=== PATIENT | male | born 1985 | race Caucasian/White ===

== ENCOUNTER 2020-07-10 20:34 | Emergency (ER) | payer OTHER ==
--- NOTE | 2020-07-10 20:38 | EDM.PDOC ---
ED HPI GENERAL MEDICAL PROBLEM - General Chief Complaint: Head Injury Stated Complaint: HEAD INJURY Time Seen by Provider: 07/10/20 20:37 Source of Information: Reports: Patient History Limitations: Reports: No Limitations - History of Present Illness INITIAL COMMENTS - FREE TEXT/NARRATIVE: 34-year-old male presents brought in by police department for aggressive behavior at longterm. Patient was banging his head against a cell door and sustained a hematoma and laceration to his frontal head. No loss of consciousness. No neck pain. No falls. No blood thinner use. No alcohol abuse. No AMS. He has no complaints head Pain Score (Numeric/FACES): 0 - Related Data Allergies Allergy/AdvReac Type Severity Reaction Status Date / Time No Known Allergies Allergy Verified 07/10/20 20:41 Home Meds: Home Meds . [No Known Home Meds] 07/10/20 [History] ED ROS GENERAL - Review of Systems Review Of Systems: Comprehensive ROS is negative, except as noted in HPI. ED EXAM, HEAD INJURY - Physical Exam Exam: See Below Exam Limited By: No Limitations General Appearance: Alert, WD/WN, No Apparent Distress Head: Atraumatic, Other (2-cm hematoma with overlying small linear abrasion no active bleeding ) Nexus Criteria: No: Posterior, Midline Cervical Tenderness, Evidence of Intoxication, Altered Level of Consciousness, Focal Neurological Deficit, Painful Distraction Injuries Eyes: Bilateral Eye: PERRL Throat/Mouth: Normal Voice, No Airway Compromise Neck: Non-Tender Respiratory: No Respiratory Distress, Lungs Clear, Normal Breath Sounds, No Accessory Muscle Use Cardiovascular: Normal Peripheral Pulses, Regular Rate, Rhythm GI/Abdominal Exam: Normal Bowel Sounds Extremities: Normal Inspection Neurologic: Alert Course - Vital Signs Last Recorded V/S: Last Vital Signs Temp 97.4 F 07/10/20 20:41 Pulse 73 07/10/20 20:41 Resp 20 07/10/20 20:41 BP 144/94 H 07/10/20 20:41 Pulse Ox 97 07/10/20 20:41 - Orders/Labs/Meds Meds: Medications Discontinued Medications Generic Name Dose Route Start Last Admin Trade Name Freq PRN Reason Stop Dose Admin Octyl Cyanoacrylate 1 applic 07/10/20 20:45 07/10/20 20:46 Octyl 2-Cyanoacrylate 1 Tube TOP 07/10/20 20:46 1 applic ONETIME ONE Administration Octyl Cyanoacrylate Confirm 07/10/20 20:44 Octyl 2-Cyanoacrylate 1 Tube Administered 07/10/20 20:45 Dose 1 applic .ROUTE .STK-MED ONE - Re-Assessments/Exams Free Text/Narrative Re-Assessment/Exam: 07/10/20 20:49 We will discharge to PD custody Departure - Departure Time of Disposition: 20:49 Disposition: Home, Self-Care 01 Condition: Good Clinical Impression: Head injury Qualifiers: Encounter type: initial encounter Qualified Code(s): S09.90XA - Unspecified injury of head, initial encounter - Discharge Information Instructions: Head Injury, Adult Referrals: PCP,None [Primary Care Provider] - Forms: ED Department Discharge Additional Instructions: The following information is given to patients seen in the emergency department who are being discharged to home. This information is to outline your options for follow-up care. We provide all patients seen in our emergency department with a follow-up referral. The need for follow-up, as well as the timing and circumstances, are variable depending upon the specifics of your emergency department visit. If you don't have a primary care physician on staff, we will provide you with a referral. We always advise you to contact your personal physician following an emergency department visit to inform them of the circumstance of the visit and for follow-up with them and/or the need for any referrals to a consulting specialist. The emergency department will also refer you to a specialist when appropriate. This referral assures that you have the opportunity for follow-up care with a specialist. All of these measure are taken in an effort to provide you with optimal care, which includes your follow-up. Under all circumstances we always encourage you to contact your private physician who remains a resource for coordinating your care. When calling for follow-up care, please make the office aware that this follow-up is from your recent emergency room visit. If for any reason you are refused follow-up, please contact the [facility] Emergency Department at and asked to speak to the emergency department charge nurse. Please follow up with your primary care physician. If you do not have a primary care physician, see below: [facility] [address] [place] [id number] [place], [place] [id number] [facility] [address] [place] [address] Sepsis Event Note (ED) - Focused Exam Vital Signs: Vital Signs Temp Pulse Resp BP Pulse Ox 07/10/20 20:41 97.4 F 73 20 144/94 H 97
[2020-07-10] MEDS ORDERED: Octyl 2-Cyanoacrylate 1 Tube ONE (20:44)
[2020-07-10] MEDS ORDERED: Octyl 2-Cyanoacrylate 1 Tube TOP ONE (20:45)
== END 2020-07-10 20:56 ==
LOC: MW.ED 20:34
DX: S00.93XA Contusion of unspecified part of head, initial encounter (principal); Y92.143 Cell of prison as the place of occurrence of the external cause; W22.8XXA Striking against or struck by other objects, initial encounter
CPT/HCPCS: 99283; A9270

== ENCOUNTER 2021-04-24 08:21 | Emergency (ER) | payer OTHER ==
[2021-04-24] MEDS ORDERED: Albuterol/Ipratropium 3.0-0.5 MG/3 ML Neb Soln NEB PRN (08:32)
[2021-04-24] MEDS ORDERED: Albuterol 8 GM Inhaler INH PRN ×2 (08:38→09:32)
[2021-04-24] MEDS ORDERED: Benzonatate 100 MG Cap PO ONE (08:40)
[2021-04-24] MEDS ORDERED: Sodium Chloride 0.9% 10 ML Syringe FLUSH PRN (08:41)
[2021-04-24] MEDS ORDERED: Sodium Chloride 0.9% 2.5 ML Syringe FLUSH PRN (08:41)
[2021-04-24] MEDS ORDERED: Sodium Chloride 0.9% 20 ML SDV IV PRN (08:41)
--- NOTE | 2021-04-24 08:45 | EDM.PDOC ---
<Ayana Dougherty - Last Filed: 04/24/21 10:35> ED HPI GENERAL MEDICAL PROBLEM - General Chief Complaint: Respiratory Problem Stated Complaint: sob Time Seen by Provider: 04/24/21 08:31 - History of Present Illness INITIAL COMMENTS - FREE TEXT/NARRATIVE: 35-year-old male with a history of hepatitis C presents to the clinic with 5days of fever, chills, cough productive of yellow sputum and fatigue. Patient is not vaccinated for COVID-19 or the flu. Patient smokes half a pack per day for 25 years. Patient was brought in by EMS. He appears to be in mild distress and states difficulty breathing is his main complaint. Patient denies nausea, vomiting, diarrhea, chest pain, palpitations, headaches, syncope or leg pain. Patient is not on any medications. Patient denies any known allergies. coughing pain Pain Score (Numeric/FACES): 5 - Related Data Allergies Allergy/AdvReac Type Severity Reaction Status Date / Time No Known Allergies Allergy Verified 04/24/21 08:31 Home Meds: Home Meds Azithromycin 250 mg PO DAILY #6 tablet 04/24/21 [Rx] predniSONE [Prednisone] 60 mg PO DAILY #21 tablet 04/24/21 [Rx] Past Medical History - Past Health History Medical/Surgical History: Denies Medical/Surgical History - Infectious Disease History Infectious Disease History: Reports: Chicken Pox Social & Family History - Family History Family Medical History: No Pertinent Family History - Caffeine Use Caffeine Use: Reports: None ED ROS GENERAL - Review of Systems Review Of Systems: Comprehensive ROS is negative, except as noted in HPI. ED EXAM, GENERAL - Physical Exam Exam: See Below General Appearance: Alert, Mild Distress Nose: Normal Inspection Throat/Mouth: Normal Inspection, No Airway Compromise Head: Atraumatic, Normocephalic Neck: Normal Inspection, Supple Respiratory/Chest: No Respiratory Distress, No Accessory Muscle Use, Chest Non- Tender, Decreased Breath Sounds Cardiovascular: Normal Peripheral Pulses, Regular Rate, Rhythm Peripheral Pulses: 2+: Dorsalis Pedis (L), Dorsalis Pedis (R) GI/Abdominal: Normal Bowel Sounds, Soft, Non-Tender Back Exam: Normal Inspection Extremities: Normal Inspection Neurological: Alert, Oriented Course - Re-Assessments/Exams Free Text/Narrative Re-Assessment/Exam: 04/24/21 10:24 Chest x-ray unremarkable. Covid negative. Influenza negative. Patient received 1 L normal saline. 1 dose of Solu-Medrol. Patient's lungs are clear. Departure - Departure Disposition: Home, Self-Care 01 Clinical Impression: Lower respiratory infection - Discharge Information *PRESCRIPTION DRUG MONITORING PROGRAM REVIEWED*: Not Applicable *COPY OF PRESCRIPTION DRUG MONITORING REPORT IN PATIENT AYO: Not Applicable Prescriptions: Azithromycin 250 mg PO DAILY #6 tablet predniSONE [Prednisone] 60 mg PO DAILY #21 tablet Referrals: Elio Hutchins, VISUAL MERCHANDISING DIRECTOR [Primary Care Provider] - Forms: ED Department Discharge Additional Instructions: The following information is given to patients seen in the emergency department who are being discharged to home. This information is to outline your options for follow-up care. We provide all patients seen in our emergency department with a follow-up referral. The need for follow-up, as well as the timing and circumstances, are variable depending upon the specifics of your emergency department visit. If you don't have a primary care physician on staff, we will provide you with a referral. We always advise you to contact your personal physician following an emergency department visit to inform them of the circumstance of the visit and for follow-up with them and/or the need for any referrals to a consulting specialist. The emergency department will also refer you to a specialist when appropriate. This referral assures that you have the opportunity for follow-up care with a specialist. All of these measure are taken in an effort to provide you with optimal care, which includes your follow-up. Under all circumstances we always encourage you to contact your private physician who remains a resource for coordinating your care. When calling for follow-up care, please make the office aware that this follow-up is from your recent emergency room visit. If for any reason you are refused follow-up, please contact the [facility] Emergency Department at and asked to speak to the emergency department charge nurse. [facility] [address] [place] [id number] [facility] [address] [place] [id number] Thank you for choosing the [facility] emergency department in [place] for your medical needs today. It was a pleasure caring for you. Today you were seen in the emergency department for lower respiratory infection. Please take azithromycin as directed. Please take prednisone as directed. You have been given an albuterol inhaler. Please take 2 puffs every 2 hours as needed for shortness of breath. Prescriptions sent to [facility]. <Macho Mcleod - Last Filed: 04/24/21 10:36> ED ROS GENERAL - Review of Systems Review Of Systems: Comprehensive ROS is negative, except as noted in HPI. ED EXAM, GENERAL - Physical Exam Exam: See Below Free Text/Narrative:: Physical exam is in the HPI Course - Vital Signs Last Recorded V/S: Last Vital Signs Temp 37.1 C 04/24/21 08:21 Pulse 104 H 04/24/21 08:59 Resp 40 H 04/24/21 08:21 BP 122/73 04/24/21 08:59 Pulse Ox 95 04/24/21 08:59 - Orders/Labs/Meds Orders: Active Orders 24 hr Category Date Time Status RT Post Treatment Assessment [RC] Click to Edit Care 04/24/21 08:39 Active RT Pre-Treatment Assessment [RC] Click to Edit Care 04/24/21 08:39 Active Albuterol [Ventolin HFA] Med 04/24/21 09:32 Active 0 gm INH Q2H PRN Sodium Chloride 0.9% [Normal Saline] Med 04/24/21 08:41 Active 10 ml IV ASDIRECTED PRN Sodium Chloride 0.9% [Normal Saline] 1,000 ml Med 04/24/21 09:56 Active IV .Bolus Sodium Chloride 0.9% [Saline Flush] Med 04/24/21 08:41 Active 10 ml FLUSH ASDIRECTED PRN Sodium Chloride 0.9% [Saline Flush] Med 04/24/21 08:41 Active 2.5 ml FLUSH ASDIRECTED PRN Peripheral IV Insertion Adult [OM.PC] Stat Oth 04/24/21 08:41 Ordered Medication Orders Albuterol (Albuterol 8 Gm Inhaler) 0 gm INH Q2H PRN PRN Reason: Shortness of Breath Sodium Chloride (Normal Saline) 1,000 mls @ 999 mls/hr IV .Bolus ONE Stop: 04/24/21 10:56 Last Admin: 04/24/21 10:20 Dose: 999 mls/hr Documented by: PETRKAT Sodium Chloride (Sodium Chloride 0.9% 10 Ml Syringe) 10 ml FLUSH ASDIRECTED PRN PRN Reason: Keep Vein Open Last Admin: 04/24/21 08:56 Dose: 10 ml Documented by: PETRKAT Sodium Chloride (Sodium Chloride 0.9% 2.5 Ml Syringe) 2.5 ml FLUSH ASDIRECTED PRN PRN Reason: Keep Vein Open Last Admin: 04/24/21 08:56 Dose: 2.5 ml Documented by: PETRKAT Sodium Chloride (Sodium Chloride 0.9% 20 Ml Sdv) 10 ml IV ASDIRECTED PRN PRN Reason: IV Use Labs: Laboratory Tests 04/24/21 04/24/21 04/24/21 Range/Units 08:15 08:25 08:25 WBC 16.07 H (4.0-11.0) K/uL RBC 5.06 (4.50-5.90) M/uL Hgb 15.8 (13.0-17.0) g/dL Hct 44.5 (38.0-50.0) % MCV 87.9 (80.0-98.0) fL MCH 31.2 (27.0-32.0) pg MCHC 35.5 (31.0-37.0) g/dL RDW Std Deviation 44.8 (28.0-62.0) fl RDW Coeff of Bernice 14 (11.0-15.0) % Plt Count 276 (150-400) K/uL MPV 10.00 (7.40-12.00) fL Nucleated RBC % 0.0 /100WBC Nucleated RBCs # 0 K/uL Sodium 139 (136-148) mmol/L Potassium 3.4 L (3.5-5.1) mmol/L Chloride 100 (98-107) mmol/L Carbon Dioxide 18.0 L (21.0-32.0) mmol/L BUN 12 (7.0-18.0) mg/dL Creatinine 1.4 H (0.8-1.3) mg/dL Est Cr Clr Drug Dosing 70.20 mL/min Estimated GFR (MDRD) 57.3 ml/min Glucose 156 H (74-106) mg/dL Calcium 8.9 (8.5-10.1) mg/dL Total Bilirubin 0.4 (0.2-1.0) mg/dL AST 15 (15-37) IU/L ALT 19 (14-63) IU/L Alkaline Phosphatase 91 (46-116) U/L Total Protein 7.8 (6.4-8.2) g/dL Albumin 3.6 (3.4-5.0) g/dL Globulin 4.2 H (2.6-4.0) g/dL Albumin/Globulin Ratio 0.9 (0.9-1.6) Influenza Type A RNA NEGATIVE (NEGATIVE) Influenza Type B RNA NEGATIVE (NEGATIVE) SARS-CoV-2 RNA (ABBEY) NEGATIVE (NEGATIVE) Meds: Medications Generic Name Dose Route Start Last Admin Trade Name Damaris PRN Reason Stop Dose Admin Albuterol 0 gm 04/24/21 09:32 Albuterol 8 Gm Inhaler INH Q2H PRN Shortness of Breath Sodium Chloride 1,000 mls @ 999 mls/hr 04/24/21 09:56 04/24/21 10:20 Normal Saline IV 04/24/21 10:56 999 mls/hr .Bolus ONE Administration Sodium Chloride 10 ml 04/24/21 08:41 04/24/21 08:56 Sodium Chloride 0.9% 10 Ml Syringe FLUSH 10 ml ASDIRECTED PRN Administration Keep Vein Open Sodium Chloride 2.5 ml 04/24/21 08:41 04/24/21 08:56 Sodium Chloride 0.9% 2.5 Ml Syringe FLUSH 2.5 ml ASDIRECTED PRN Administration Keep Vein Open Sodium Chloride 10 ml 04/24/21 08:41 Sodium Chloride 0.9% 20 Ml Sdv IV ASDIRECTED PRN IV Use Discontinued Medications Generic Name Dose Route Start Last Admin Trade Name Frewill PRN Reason Stop Dose Admin Albuterol 8.5 gm 04/24/21 08:55 04/24/21 09:53 Albuterol 8 Gm Inhaler INH 04/24/21 08:56 8.5 gm ONETIME STA Administration Albuterol/Ipratropium 3 ml 04/24/21 08:32 Albuterol/Ipratropium 3.0-0.5 Mg/3 Ml Neb Soln NEB Q2H PRN Shortness of Breath Benzonatate 200 mg 04/24/21 08:40 04/24/21 08:56 Benzonatate 100 Mg Cap PO 04/24/21 08:41 200 mg ONETIME ONE Administration Methylprednisolone Sodium Succinate 125 mg 04/24/21 09:25 04/24/21 09:33 Methylprednisolone Sodium Succinate 125 Mg/2 Ml Sdv IVPUSH 04/24/21 09:26 125 mg ONETIME ONE Administration - Re-Assessments/Exams Free Text/Narrative Re-Assessment/Exam: 04/24/21 08:59 Chart from the resident reviewed. I agree with the history and physical exam. He is got prolonged expiratory phase of respiration with coarse breath sounds throughout at this point and he has responded well to an albuterol treatment in route by the EMS personnel. He is waiting for his inhaler and spacer to be given and started here. He also has not had his chest x-ray yet. The patient feels improved and his oxygen saturation is 97%. Departure - Departure Time of Disposition: 10:36 Sepsis Event Note (ED) - Focused Exam Vital Signs: Vital Signs Temp Pulse Resp BP Pulse Ox 04/24/21 08:59 104 H 122/73 95 04/24/21 08:45 107 H 147/87 H 95 04/24/21 08:30 139/70 97 04/24/21 08:21 37.1 C 118 H 40 H 139/70 99
[2021-04-24] MEDS ORDERED: Albuterol 8 GM Inhaler INH STA (08:55)
[2021-04-24] MEDS ORDERED: methylPREDNISolone Sodium Succinate 125 MG/2 ML SDV IVPUSH ONE (09:25)
[2021-04-24 09:31] LABS: CORONAVIRUS COVID-19 NAA NEGATIVE (NEGATIVE); INFLUENZA A NAA NEGATIVE (NEGATIVE); INFLUENZA B NAA NEGATIVE (NEGATIVE)
[2021-04-24 09:31] LABS: POTASSIUM,K 3.4 mmol/L (3.5-5.1)
--- NOTE | 2021-04-24 09:31 | CR ---
INDICATION: Cough and dyspnea COMPARISON: None TECHNIQUE: Single-view study performed as an AP portable upright image FINDINGS: TUBES AND LINES: None. HEART AND MEDIASTINUM: The heart size is normal. The mediastinal contour appears normal for patient age. LUNGS AND PLEURAL SPACES: The lungs appear normal.The pleural spaces are unremarkable. OSSEOUS STRUCTURES: Age-appropriate appearance. No acute focal finding. IMPRESSION: No evidence of active pulmonary disease. Dictated by Juanito Parikh MD @ 04/24/2021 9:29:45 AM (Electronically Signed)
[2021-04-24] MEDS ORDERED: Sodium Chloride 0.9% 1,000 ML IV ONE (09:56)
== END 2021-04-24 11:20 | disposition home or self-care (01) ==
LOC: MW.ED 08:21
DX: J22 Unspecified acute lower respiratory infection (principal); Z20.822 Contact with and (suspected) exposure to COVID-19
CPT/HCPCS: 0240U; 36415; 71045; 80053; 85027; 96374; 99285; A9270; J2930; J7030

== ENCOUNTER 2021-11-18 14:35 | Emergency (ER) | payer OTHER ==
[2021-11-18] MEDS ORDERED: Bacitracin Oint 1 GM U/D Packet TOP ONE (14:46)
[2021-11-18] MEDS ORDERED: Diphtheria,Pertussis(Acell),Tetanus Vaccine 0.5 ML Syringe IM ONE (14:46)
[2021-11-18] MEDS ORDERED: Lidocaine 1% PF 2 ML SDV INJECT ONE (14:46)
[2021-11-18] MEDS ORDERED: Ibuprofen 400 MG Tab PO ONE (14:53)
[2021-11-18] MEDS ORDERED: Acetaminophen 325 MG Tab PO ONE (14:53)
[2021-11-18] MEDS ORDERED: Lidocaine 1% 5 ML VIAL INJECT ONE (14:53)
[2021-11-18] MEDS ORDERED: Lidocaine/Epineph/Tetracaine 3 ML Syringe TOP ONE (15:52)
== END 2021-11-18 17:36 | disposition home or self-care (01) ==
LOC: MW.ED 14:35
DX: S61.012A Laceration without foreign body of left thumb without damage to nail, initial encounter (principal); F17.210 Nicotine dependence, cigarettes, uncomplicated; Z23 Encounter for immunization; W26.0XXA Contact with knife, initial encounter
CPT/HCPCS: 12002; 90471; 90715; 99282; A9270; 64450

== ENCOUNTER 2022-03-02 01:00 | Emergency (ER) | payer OTHER | END 2022-03-02 01:15 | disposition home or self-care (01) | LOC: MW.ED 01:00 | DX: S09.90XA Unspecified injury of head, initial encounter (principal); S02.2XXA Fracture of nasal bones, initial encounter for closed fracture; I10 Essential (primary) hypertension; E11.9 Type 2 diabetes mellitus without complications; Y04.0XXA Assault by unarmed brawl or fight, initial encounter | CPT/HCPCS: 70450; 70450-26; 70486; 70486-26; 99284 ==

== ENCOUNTER 2023-09-28 00:14 | Emergency (ER) | payer OTHER ==
[2023-09-28] MEDS: Sodium Chloride 0.9% 10 ML Syringe FLUSH PRN (00:41)
[2023-09-28] MEDS: Sodium Chloride 0.9% 1,000 ML IV STA (00:41)
[2023-09-28] MEDS: Ondansetron 4 MG/2 ML SDV IVPUSH ONE ×2 (00:41→00:53)
[2023-09-28] MEDS: Sodium Chloride 0.9% 2.5 ML Syringe FLUSH PRN (00:42)
[2023-09-28 00:47] LABS: BASOPHILS ABSOLUTE AUTO 0.04 K/uL (0.00-0.20); BASOPHILS PERCENT AUTO 0.4 % (0.0-1.0); EOSINOPHILS ABSOLUTE AUTO 0.19 K/uL (0.00-0.45); EOSINOPHILS PERCENT AUTO 1.7 % (0.0-6.0); HEMATOCRIT 46.2 % (42.0-52.0); HEMOGLOBIN 16.1 g/dL (14.0-18.0); IMMATURE GRAN ABSOLUTE AUTO 0.03 K/uL (0.00-0.05); IMMATURE GRAN PERCENT AUTO 0.3 % (0.0-0.4); LYMPHOCYTES ABSOLUTE AUTO 3.61 K/uL (1.00-4.80); LYMPHOCYTES PERCENT AUTO 31.8 % (24.0-44.0); MEAN CORPUSCULAR HEMOGLOBIN 30.9 pg (28.0-32.0); MEAN CORPUSCULAR HGB CONC 34.8 g/dL (32.0-36.0); MEAN CORPUSCULAR VOLUME 88.7 fL (83.0-99.0); MEAN PLATELET VOLUME 9.1 fL (9.4-12.4); MONOCYTES PERCENT AUTO 7.9 % (0.0-8.0); NEUTROPHILS ABSOLUTE AUTO 6.59 K/uL (1.80-7.70); NEUTROPHILS PERCENT AUTO 57.9 % (41.0-71.0); PLATELET COUNT,PLT 223 K/uL (150-400); RED BLOOD CELL COUNT 5.21 M/uL (4.52-5.90); WHITE BLOOD CELL COUNT,WBC 11.36 K/uL (3.9-11.3)
[2023-09-28 01:11] LABS: A/G RATIO 1.3 (0.9-1.6); BILIRUBIN TOTAL 0.3 mg/dL (0.2-1.0); CALCIUM 8.8 mg/dL (8.5-10.1); CARBON DIOXIDE,CO2 25.2 mmol/L (21.0-32.0); CREATININE 1.1 mg/dL (0.8-1.3); EST CRCL DRUG DOSING (CG) 85.13 mL/min; POTASSIUM,K 3.9 mmol/L (3.5-5.1); PROTEIN TOTAL,TP 7.2 g/dL (6.4-8.2)
== END 2023-09-28 02:15 | disposition left against medical advice (07) ==
LOC: MW.ED 00:14
DX: R55 Syncope and collapse (principal); F10.129 Alcohol abuse with intoxication, unspecified; F17.210 Nicotine dependence, cigarettes, uncomplicated; Z75.8 Other problems related to medical facilities and other health care
CPT/HCPCS: 36415; 70450; 71045; 80053; 80307; 83690; 84484; 85025; 93005; 96361; 96374; 99284; J2405; J3490; J7030; 93010

== ENCOUNTER 2024-08-31 00:49 | Emergency (ER) | payer OTHER ==
[2024-08-31] MEDS: Acetaminophen 500 MG Tab PO ONE (01:18)
[2024-08-31] MEDS: Ketorolac 30 MG/ML SDV IM ONE (01:18)
[2024-08-31] MEDS: Bacitracin Oint 1 GM U/D Packet TOP ONE (01:19)
== END 2024-08-31 01:42 | disposition home or self-care (01) ==
LOC: MW.ED 00:49
DX: S60.222A Contusion of left hand, initial encounter (principal); W10.9XXA Fall (on) (from) unspecified stairs and steps, initial encounter; F17.210 Nicotine dependence, cigarettes, uncomplicated; Z79.899 Other long term (current) drug therapy
CPT/HCPCS: 73130; 96372; 99283; A9270; J1885

== ENCOUNTER 2024-09-12 12:18 | Emergency (ER) | payer OTHER ==
[2024-09-12] MEDS: Acetaminophen 500 MG Tab PO ONE (13:26)
[2024-09-12] MEDS: Ibuprofen 400 MG Tab PO ONE (13:27)
[2024-09-12] MEDS ORDERED: oxyCODONE 5 MG Tab PO ONE (14:26)
[2024-09-12] MEDS ORDERED: Cephalexin 500 MG Cap PO ONE (14:26)
[2024-09-12] MEDS: Cephalexin 500 MG Cap PO ONE (14:27)
[2024-09-12] MEDS: oxyCODONE 5 MG Tab PO ONE (14:27)
== END 2024-09-12 14:31 | disposition home or self-care (01) ==
LOC: MW.ED 12:18
DX: L03.113 Cellulitis of right upper limb (principal); Z79.899 Other long term (current) drug therapy; Z75.3 Unavailability and inaccessibility of health-care facilities
CPT/HCPCS: 99283; A9270; 99282